=== PATIENT | female | born 1995 ===

== ENCOUNTER 2018-06-20 13:50 | Emergency (ER) | payer SELFPAY ==
[2018-06-20 14:00] VITALS: BP 120/80; PULSE 70; TEMP 36.6; O2SAT 100
[2018-06-20 14:24] LABS: Bacteria Urine Few (2-10); Culture Indicated Urine Specimen Cultured; RBC Urine 1-5/HPF (0-5/HPF); Squamous Epithelial Cell Urine 1-5 /HPF; WBC Urine 30-100/HPF (0-5/HPF)
--- NOTE | 2018-06-20 15:00 | ED.FEMALEGU ---
HPI - Female Genitourinary <MAURO Delcid - Last Filed: 06/20/18 21:46> General Chief complaint: Urogenital-Female Stated complaint: states bladder infection Time Seen by Provider: 06/20/18 13:55 Source: patient Mode of arrival: ambulatory Limitations: no limitations History of Present Illness HPI Narrative: Healthy 23-year-old female that is a nonsmoker here for complaint having dysuria and increased urinary frequency since last night. She denies any nausea vomiting. No flank pain. She denies any abdominal pain. Positive p.o. intake. She denies any blood in her urine. She reports that she had a urinary traction infection once before last year. No other concerns or complaints this timeframe. MD Complaint: dysuria Related Data Previous Rx's Medication Instructions Recorded nitrofurantoin monohyd/m-cryst 100 mg PO BID #14 cap 06/20/18 [Macrobid] Allergies Allergy/AdvReac Type Severity Reaction Status Date / Time No Known Drug Allergies Allergy Verified 06/20/18 14:03 Review of Systems <MAURO Delcid - Last Filed: 06/20/18 21:46> Eyes Denies change in vision, Denies eye discharge, Denies irritation and Denies loss of vision ENT Ears, Nose, Mouth, and Throat: Denies change in voice, Denies neck pain, Denies sore throat and Denies throat swelling Cardiovascular Denies chest pain, Denies irregular heart rhythm, Denies lightheadedness, Denies palpitations and Denies orthopnea Respiratory Denies wheezing Gastrointestinal Gastrointestinal: Denies abdominal pain, Denies change in bowel habits, Denies diarrhea, Denies nausea and Denies vomiting Genitourinary Comments: Urinary frequency and dysuria Musculoskeletal Denies neck pain Integumentary/Breasts Denies pruritus, Denies erythema, Denies rash and Denies wounds Neurologic Denies confusion and Denies loss of vision Psychiatric Denies anxiety, Denies confusion, Denies depression, Denies homicidal ideation and Denies suicidal ideation Endocrine Denies palpitations Hematologic/Lymphatic Denies easy bruising Allergic/Immunologic Denies urticaria, Denies throat swelling and Denies wheezing Exam <MAURO Delcid - Last Filed: 06/20/18 21:46> Initial Vital Signs Initial Vital Signs: Vital Signs Temperature 97.9 F 06/20/18 14:00 Pulse Rate 70 06/20/18 14:00 Blood Pressure 120/80 06/20/18 14:00 Pulse Oximetry 100 06/20/18 14:00 Const General: cooperative and well developed Nutritional Appearance: well nourished Orientation: alert, awake, oriented x3 and not confused HENAZ Mouth: oral mucosae normal and moist mucous membranes Eyes Conjunctivae: conjunctivae normal Sclera: sclerae normal Pupils: PERRL EOM: EOM intact bilaterally Resp Effort & Inspection: normal respiratory effort, able to speak in complete sentences, no respiratory distress and no use of accessory muscles Auscultation: clear to auscultation bilaterally, no rales, no rhonchi and no wheezes Cardio Rate: regular rate Rhythm: regular rhythm Heart Sounds: no click, no gallops, no murmurs and no rubs Pulses: normal peripheral pulses GI Inspection: non-distended Palpation: soft, no hepatosplenomegaly, No guarding, No pulsatile mass and No tender Auscultation: normal bowel sounds General: No CVA tenderness Skin General: no rashes or lesions noted, No jaundice and No petechiae Neuro General: alert, oriented x3, gait normal and no focal motor deficits Speech: speech normal <Anisa Hou DO - Last Filed: 06/21/18 08:28> Initial Vital Signs Initial Vital Signs: Vital Signs Temperature 97.9 F 06/20/18 14:00 Pulse Rate 70 06/20/18 14:00 Blood Pressure 120/80 06/20/18 14:00 Pulse Oximetry 100 06/20/18 14:00 Course <MAURO Delcid - Last Filed: 06/20/18 21:46> Orders Ordered: ED Orders 06/20/18 14:09 Urine Culture Stat Urine Microscopic Stat Vital Signs - 8 hr 06/20/18 14:00 06/20/18 15:22 Temperature 97.9 F Pulse Rate 70 73 Respiratory Rate 16 Blood Pressure 120/80 105/68 Pulse Oximetry 100 100 <Anisa Hou DO - Last Filed: 06/21/18 08:28> Orders Ordered: ED Orders 06/20/18 14:09 Urine Culture Stat Urine Microscopic Stat Vital Signs - 8 hr 06/20/18 14:00 06/20/18 15:22 Temperature 97.9 F Pulse Rate 70 73 Respiratory Rate 16 Blood Pressure 120/80 105/68 Pulse Oximetry 100 100 MDM - Female Genitourinary <MAURO Delcid - Last Filed: 06/20/18 21:46> Lab Data Lab Results 06/20/18 Range/Units 14:09 Urine RBC 1-5/hpf (0-5/HPF) Urine WBC 30-100/hpf H (0-5/HPF) Ur Squamous Epith Cells 1-5 /hpf Urine Bacteria Few (2-10) H (None) Ur Culture Indicated? Specimen cultured Point of Care Testing Test Results Negative Urine Dip Bedside Urine Glucose Negative Bedside Urine Bilirubin - Negative Bedside Urine Ketone - Negative Urine Specific [place] 1.015 Bedside Urine Occult Blood ++ Bedside Urine pH 6.0 Bedside Urine Protein - Negative Bedside Urine Urobilinogen - Negative Bedside Urine Nitrite - Negative Bedside Urine Leukocytes +++ 500 Esterase MDM Narrative Medical decision making narrative: Signs and symptoms presents as a urinary tract infection. She is placed on Macrobid and Pyridium. Culture is pending. Follow up with primary care provider next week. Plenty of fluids. For any worsening symptoms return to the emergency room. <Anisa Hou DO - Last Filed: 06/21/18 08:28> Lab Data Lab Results 06/20/18 Range/Units 14:09 Urine RBC 1-5/hpf (0-5/HPF) Urine WBC 30-100/hpf H (0-5/HPF) Ur Squamous Epith Cells 1-5 /hpf Urine Bacteria Few (2-10) H (None) Ur Culture Indicated? Specimen cultured Point of Care Testing Test Results Negative Urine Dip Bedside Urine Glucose Negative Bedside Urine Bilirubin - Negative Bedside Urine Ketone - Negative Urine Specific [place] 1.015 Bedside Urine Occult Blood ++ Bedside Urine pH 6.0 Bedside Urine Protein - Negative Bedside Urine Urobilinogen - Negative Bedside Urine Nitrite - Negative Bedside Urine Leukocytes +++ 500 Esterase Discharge Plan Departure Patient Disposition: Home Clinical Impression: Urinary tract infection Qualifiers: Urinary tract infection type: acute cystitis Hematuria presence: without hematuria Qualified Code(s): N30.00 - Acute cystitis without hematuria Discharge Date/Time: 06/20/18 15:22 Interventions: ED Discharge Assessment Last Done: 06/20/18 15:22 Instructions: DI for Urinary Tract Infection (UTI) Activity Restrictions/Additional Instructions: Urinalysis indicates urinary tract infection. Urine placed on an antibiotic called Macrobid use as directed. You also prescribed Pyridium to help with any dysuria also use as directed. Be aware that the Pyridium will turn your urine orange. Plenty of fluids. Follow up with her primary care provider. Return emergency room for any worsening symptoms. Prescriptions: New nitrofurantoin monohyd/m-cryst [Macrobid] 100 mg capsule 100 mg PO BID Qty: 14 RF: 0 Referrals: [facility] [Provider Group] <Anisa Hou DO - Last Filed: 06/21/18 08:28> Cosign ED Attending [place] Attestation: I was immediately available in the department for consultation. Documentation has been reviewed. I agree with assessment and plan.
[2018-06-20 15:22] VITALS: BP 105/68; PULSE 73; RESP 16; O2SAT 100
== END 2018-06-20 15:22 | disposition home or self-care (01) ==
PROVIDERS: Emergency Provider Nurse Practitioner Family
DX: N30.00 Acute cystitis without hematuria (principal)
CPT/HCPCS: 81003; 81015; 81025; 87077; 87086; 87186; 99282; 99283